=== PATIENT | male | born 1965 | race Caucasian/White ===

== ENCOUNTER → 2018-09-25 12:49 | Outpatient (CLI) | payer MEDICAID, SELFPAY ==
[2018-09-25 12:47] VITALS: BMI 31.7
--- NOTE | 2018-09-25 13:06 | RAD_ITS ---
STUDY: X-RAY - LEFT KNEE REASON FOR EXAM: Male, 53 years old. Pain. TECHNIQUE: For view(s) of the knee. COMPARISON: None. FINDINGS: Normal visualized distal femur. Normal visualized proximal tibia and fibula. Normal proximal tibiofibular articulation. There is no demonstrated fracture. There is severe degenerative arthrosis of the medial femorotibial compartment with severe joint space narrowing. There is mild degenerative arthrosis of the lateral femorotibial compartment. There is moderate degenerative arthrosis of the patellofemoral articulation. There is a soft tissue prominence in the suprapatellar region suggesting a small volume joint effusion. The soft tissue structures are unremarkable. RAD/Knee 4 or More Views IMPRESSION: 1. Degenerative arthrosis. 2. Probably small joint effusion. Electronically Signed: Jorden Sun MD at 13:37 EST Tel , Service support ,
--- OUTSIDE RECORDS SUMMARY | 2018-11-30 02:46 | XMS RPT_ITS ---
:1965 Author Organization [facility] Care Team Providers Name Role Phone Jose Antonio Barksdale Attending Unavailable Star Atkins Referring Unavailable Jose Antonio Barksdale Attending Unavailable Jose Antonio Barksdale Referring Unavailable PROBLEMS PROBLEMS DATE TYPE CONDITION / CODE ATTENDING STATUS SOURCE 09/25/2018 Unknown M25.562 - Pain Jose Antonio Barksdale Active [place] in left knee / Community M25.562(ICD-10) Hospital Repository 09/25/2018 Unknown S83.282A - Other Jose Antonio Barksdale Active [place] tear of lateral Community meniscus, Hospital current injury, Repository left knee, initial encounter / S83.282A(ICD-10) PROCEDURES PROCEDURES No Procedure Records FoundRESULTS RESULTS ORTHOPEDIC VISIT Observed: 09/25/2018 Status: F Source: DIANE REPORT 3:45 PM [facility] REPOSITORY [facility] [address] [place] [id number] OFFICE VISIT Date of Service: 09/25/18 MR#: [id number] Acct: [id number] Name: JOEL VALENTINE Rep #: [id number] : 1965 Provider: NAPOLEON Barksdale Age/Sex: 53/M Location: [facility] [place] Status: Signed Intake Vital Signs09/25/18 Height 5 ft 9 in 09/25/18 Weight: 215 lb 09/25/18 Body Mass Index (BMI) 31.7 Intake Visit Reasons: BILAT KNEES Is patient in pain?: Yes Allergies No Known Allergies Allergy (Unverified 09/25/18 12:48) Medications aripiprazole 10 mg tablet 10 mg PO DAILY 09/25/18 [History Confirmed 09/25/18] buspirone 5 mg tablet 5 mg PO BID 09/25/18 [History Confirmed 09/25/18] ibuprofen 200 mg tablet 200 mg PO TID-QID PRN 09/25/18 [History Confirmed 09/25/18] quetiapine 50 mg tablet 50 mg PO BID 09/25/18 [History Confirmed 09/25/18] HPI BILAT KNEES: Details: JOLE VALENTINE is a 53 year old M new patient here today for left knee pain. He states that he has had left knee pain for many years. He notes that he had a work injury in 1994 and had 2 arthroscopic surgeries. He notes that he then caught his foot on concrete around . He complains of pain over his lateral knee. Patient has increased pain with ambulating stairs. He has popping and clicking occasional. Patient has swelling which he has been icing his knee. Patient complains of knee stiffness. Patient has knee instability due to decreased strength. He denies any xrays, injections or physical therapy. Patient has an OTC knee brace. He is taking motrin or aleve for pain. ROS Const Reports system reviewed and no additional complaints, except as docu Eyes Reports system reviewed and no additional complaints, except as docu ENT Reports system reviewed and no additional complaints, except as docu Card Reports system reviewed and no additional complaints, except as docu Resp Reports system reviewed and no additional complaints, except as docu GI Reports system reviewed and no additional complaints, except as docu Reports system reviewed and no additional complaints, except as docu Musc Reports joint pain, Reports joint swelling Skin/Breast Reports system reviewed and no additional complaints, except as docu Neuro Yes system reviewed and no additional complaints, except as docu Psych Reports system reviewed and no additional complaints, except as docu Endo Reports system reviewed and no additional complaints, except as docu Ortho Exam Left Knee Swelling: No Homans Sign: No Knee ROM: Yes ROM-Extension -20 to 0, Yes ROM-Flexion 0-140 Examination: Yes Lat jt line tenderness, Yes Pain with flexion, Yes David's Test, Yes Crepitus, No TTP inf pole patella, Yes med jt line tenderness (Minimal) Quad Atrophy: No Stability: NML: Anterior Drawer, NML: Valgus 30, NML: Varus 30 Popliteal Adenopathy: No KNEE: Patient has no evident acute abnormalities on inspection. He has no localized or generalized swelling. There is no ecchymosis, bruising, erythema or other skin changes. He does have some bony widening of the knees bilateral. He does have full range of motion at the same time some pain with flexion. ACL, PCL and collateral ligaments appear intact without laxity or pain on maneuvers. He does have tenderness in the lateral joint line. He also does have some tenderness on the lateral femoral condyle and actually proximal to the lateral condyle possibly from IT band tightness. The adjacent IT band deafly is tight with some tenderness on palpation. Office Procedures Kenalog 40 mg/mL suspension for injection (triamcinolone acetonide) 80 mg Intra-Articular ONCE Injections Yes Knee Left Office Meds Kenalog Performing Provider: NAPOLEON Ortiz Administered by: NAPOLEON Ortiz on 09/25/18 13:55 Dose Route Admin Location Lot Number Expiration DateNDC Physical Therapy Manager 80 mg Intra-Articularleft knee [id number] 11/07/19 8096-2762-38 [employer] Assessment AND Plan Problems 1. Primary osteoarthritis of left knee M17.12 2. Derangement of meniscus of left knee M23.307 Plan Obtained Xrays of patient's left knee. Personally reviewed Xrays. There is no obvious fracture, dislocation, or lucency noted. He does have evident medial compartment as well as patellofemoral narrowing as well as some scattered osteophytic growths noted. See chart for further details. This time patient does have evidence on radiographs of moderate to severe arthritis of the medial compartment. His pains however have been occurring on the lateral joint line ever since he had a small injury. He does have some evidence of meniscus damage at the same time he does have some evidence of IT involvement. At this time we discussed options which include doing nothing, conservative care with ice and anti-inflammatories, injection to the knee, further imaging with MRI. At this time patient states that he really is having difficulty sleeping and having pretty continued pains in the knee and would like to have something for relief. At this point we did discuss that he would like to proceed with an injection into the left knee. We did also discuss further imaging with an MRI of the left knee to rule out lateral meniscus tear. I did discuss that yes there is medial compartment arthritis which could cause pain at the same time his pains again are lateral and started after he had that small event where he kind of twisted the knee. I explained the injection process and answered all patient's questions and consent was signed. Injection was given under normal sterile fashion using a lateral approach with the knee in full extension. Patient tolerated procedure without any problems. He is to continue to monitor notify of any erythema, increased pain, increased swelling. I would like him to ice and take anti-inflammatory for the next 2 days. Otherwise we will see him back after he has his MRI to discuss MRI findings. I do think that he needs to probably follow up with and that he can discuss all surgical options in case arthroscopic surgery is not his best choice. All questions were answered at this time. Patient also was given some home exercises that I like him to do to work on quadricep strength and hamstring strength to help stabilize and strength of the knee. Patient states he is Yasir been doing some at home but would continue to do some of these as well as some other exercises. This note was generated with [employer] dictation software. It may contain incorrect words, spelling, and punctuation that were not noted in checking the note before signing. Orders Orders: Medications Discontinued: Kenalog (triamcinolone acetonide) Disc80 mg (2 mL) Intra- Articular ONCE 2 mL 0RS83.282A ontinued Reason: Office Medication has bF NS een Documented as given Coding Level of Care Code Off vis,new,level 3 Diagnoses Primary osteoarthritis of left knee M17.12 Osteoarthritis type: primary Derangement of meniscus of left knee M23.307 Additional Codes health promotion officer.knee ([id number]) 09/25/18 1535 <Electronically signed by Jose Antonio BENDER> Date Jose Antonio BENDER Cosigner Signature: Date (if applicable) CC: KNEE 4 OR MORE Observed: 09/25/2018 Status: F Source: DIANE VIEWS 12:55 PM [facility] Imaging Services [address] [place] [address] Knee 4 or More Views MR#: [id number] Acct: [id number] Name: JOEL VALENTINE Rep #: [id number] : 1965 M 53 From: Jorden Sun MD PCP: Star Atkins MD Status: REG CLI Study: Knee 4 or More Views Date of Exam: 09/25/18 Exam# [id number] Ordering Dr: Jose Antonio Barksdale STUDY: X-RAY - LEFT KNEE REASON FOR EXAM: Male, 53 years old. Pain. TECHNIQUE: For view(s) of the knee. COMPARISON: None. FINDINGS: Normal visualized distal femur. Normal visualized proximal tibia and fibula. Normal proximal tibiofibular articulation. There is no demonstrated fracture. There is severe degenerative arthrosis of the medial femorotibial compartment with severe joint space narrowing. There is mild degenerative arthrosis of the lateral femorotibial compartment. There is moderate degenerative arthrosis of the patellofemoral articulation. There is a soft tissue prominence in the suprapatellar region suggesting a small volume joint effusion. The soft tissue structures are unremarkable. RAD/Knee 4 or More Views IMPRESSION: 1. Degenerative arthrosis. 2. Probably small joint effusion. Electronically Signed: Jorden Sun MD at 13:37 EST Tel , Service support , CC: NAPOLEON Barksdale; Star Atkins MD Jacquard Card Lacer: Signed ALLERGIES ALLERGIES DATE TYPE / CODE NAME / CODE REACTION SEVERITY SOURCE 09/25/2018 Drug No Known Unknown [facility] Allergy/4160 Allergies/F00 Hospital 15281(SNOMED [id number](RXNOR Repository CT) M) ENCOUNTERS ENCOUNTERS ADMIT/DISCHARGE ACCOUNT ADMITTING ENCOUNTER LOCATION SOURCE NUMBER CLASS 09/25/2018 [id number] Ambulatory Diane Diane 2 [facility] ing:[facility] Repository 09/25/2018/ [id number] Ambulatory BMSBuilding:B [place] [address] Repository PAYERS PAYERS ENCOUNTER GUARANTOR PAYER SUBSCRIBER SOURCE 09/25/2018 JOEL Sung Primary JOEL VALENTINE[address] Insurance:CARESOURCEP LINDALEDOB: [facility] Number: [id number] [id number] Repository [address]Bfy: (330) Date:2018-09-25P O [phone] () [address]ATTN: [place] [address]AD: 09/25/2018 Secondary NOT GIVENUNK [place] Insurance:SELF PAY [facility] Number: Effective Repository Date:2018-09-25 09/25/2018 JOEL Sung Primary JOEL VALENTINE[address] Insurance:CARESOURCEP LINDALEDOB: [facility] Number: [id number] [id number] Repository [address]Tyj: ([phone]) Date:2018-09-14P O [phone] () [address]ATTN: [place] [address]ET: 09/25/2018 Secondary NOT GIVENUNK [place] Insurance:SELF PAY [facility] Number: Effective Repository Date:2018-09-24
== END ==
PROVIDERS: PCP Family Medicine; Referring Provider Physician Assistant; Visit Provider Physician Assistant
DX: M25.562 Pain in left knee (principal)
CPT/HCPCS: 73564

== ENCOUNTER → 2018-10-09 10:09 | Outpatient (CLI) | payer MEDICAID, SELFPAY ==
[2018-09-25 12:47] VITALS: BMI 31.7
--- NOTE | 2018-10-09 10:11 | MRI_ITS ---
STUDY: MRI LEFT KNEE REASON FOR EXAM: Left knee pain, possible twisting injury 4 months ago. TECHNIQUE: Standardized fat and water weighted pulse sequences were obtained in all 3 orthogonal planes. COMPARISON: Radiographs 09/25/2018. FINDINGS: There is tear/degeneration of the posterior horn and body of the medial meniscus (proton-density sagittal images 7-17; proton density coronal images 13-21). There is arthrosis of the medial femorotibial compartment with marginal osteophytes, chondral loss (T2 sagittal image 8) and mild subchondral cystic change. Normal medial collateral ligamentous complex (MCL). Normal distal semimembranosus, gracilis and semitendinosus tendons. There is a horizontal tear of the inferior articular surface of the posterior horn/body of the lateral meniscus (proton-density sagittal images 35-38; proton density coronal images 11-16). Normal hyaline cartilage of the lateral femorotibial compartment. There are marginal osteophytes of the lateral femorotibial compartment. Normal lateral femoral condyle and tibial plateau. Normal proximal tibiofibular articulation. Normal lateral collateral (fibular) ligament. Normal popliteus tendon. Normal biceps femoris tendon. There is intrasubstance mucoid degeneration of the anterior cruciate ligament (T2 sagittal image 14). Normal posterior cruciate ligament (PCL). Normal congruent patellofemoral articulation. There is arthrosis of the patellofemoral compartment with small marginal osteophytes and partial-thickness chondral loss (T2 sagittal image 14). Normal medial and lateral patellar retinaculum. Normal visualized quadriceps tendon. Normal patellar tendon. Normal Hoffa's fat pad. There is a small joint effusion. There is a thin medial patellar plica. There is a ganglion cyst of the distal popliteus tendon sheath (T2 sagittal images 17, 18) measuring 2.5 cm in length. There is a small cyst in the proximal tibia at the insertion site of the posterior cruciate ligament. MRI/Lower Ext Joint Only (Routine) IMPRESSION: Lateral meniscal tear. Tear/degeneration of the medial meniscus. Arthrosis of the medial femorotibial and patellofemoral compartments. Small joint effusion. Ganglion cyst of the distal popliteus tendon sheath. Electronically Signed: Edu Roth MD at 14:25 EST Tel , Service support ,
== END ==
PROVIDERS: Family Provider Family Medicine; PCP Family Medicine; Referring Provider Physician Assistant; Visit Provider Physician Assistant
DX: S83.282A Other tear of lateral meniscus, current injury, left knee, initial encounter (principal); X58.XXXA Exposure to other specified factors, initial encounter; Y93.9 Activity, unspecified; Y92.9 Unspecified place or not applicable; Y99.9 Unspecified external cause status
CPT/HCPCS: 73721

== ENCOUNTER 2018-11-04 08:13 | Day surgery (SDC) | payer MEDICAID, SELFPAY ==
[2018-10-26 13:01] VITALS: BMI 31.7
[2018-11-04 08:36] VITALS: BP 128/82; PULSE 93; RESP 16; TEMP 36.7; O2SAT 96; BMI 31.8
[2018-11-04] MEDS: Cefazolin 2 GM in 0.9% Normal Saline 100 ML IV (11:04)
[2018-11-04] MEDS: MethylPREDNISolone Acetate 80 MG/ML Vial (11:45)
[2018-11-04] MEDS: Bupiv/Epi 0.5% Mpf 30 ML Vial (11:45)
[2018-11-04] MEDS: Bupivacaine 0.5% PF 10 ML VIAL (11:45)
[2018-11-04] MEDS: Morphine 4 MG/ML Syringe (11:45)
--- NOTE | 2018-11-04 12:02 | DCINST_ITS ---
Call your doctor if you observe: Shortness of breath, Chest pain Additional Instructions: Ice and elevate next 72 hours .keep dressing on clean and dry for 48 hours then may remove begin showering daily but do not submerge in tub or pool. After shower may apply Band-Aids . Encourage knee range of motion weightbearing as tolerated, use crutches until confident in knee then may discontinue. No strenuous activity. When not ambulating keep iced and elevated next 72 hours. Allergies/Adverse Reactions: Allergies No Known Allergies Allergy (Verified 11/04/18 08:30) Medications to take at Discharge aripiprazole 10 mg tablet 2 mg PO DAILY 09/25/18 buspirone 5 mg tablet 10 mg PO BID 09/25/18 ibuprofen 200 mg tablet 200 mg PO TID-QID PRN 09/25/18 quetiapine 50 mg tablet 25 mg PO QHS 09/25/18 Venlafaxine HCl [Effexor] 75 mg PO BID 11/02/18 Hydrocodone Bitart/Apap 5-325 [Dryden 5MG-325MG] 1 - 2 tablet PO Q4H PRN PRN 5 Days #50 tablet 11/04/18 The following prescriptions were given: Hydrocodone Bitart/Apap 5-325 [Dryden 5MG-325MG] 1 - 2 tablet PO Q4H PRN PRN 5 Days #50 tablet PRN Reason: Pain Primary Care Physician: Star Atkins MD [Primary Care Provider] - Test Results: Test results from this visit will be discussed in further detail at your follow- up appointment, if applicable. Please Follow Up With: Star Gaines DO - 2wcristiane
[2018-11-04 12:04] VITALS: BP 126/88; BP 128/82; PULSE 68; RESP 16; TEMP 37.1; O2SAT 92
--- NOTE | 2018-11-04 12:04 | PCM.OPRPT ---
Report of Operation Date of Procedure: 11/04/18 Description of Surgical Findings:: Preop diagnosis: Left knee DJD lateral meniscus tear Postoperative diagnosis: Large anterior horn lateral meniscus radial tear degenerative tearing posterior horn and body lateral meniscus grade 4 [id number]-jl-mdpr kissing lesions medial compartment degenerative tearing body medial meniscus and patellofemoral compartment grade 3 lateral compartment synovitis Procedure: Left knee arthroscopic partial medial and lateral meniscal tear plasty tricompartment synovectomy Anesthesia: General Estimated blood loss: 5 mL Tourniquet time: 25 minutes 300 mmHg Complications: none Indication for procedure: This is a 53-year-old male patient who has had 2 prior arthroscopic surgeries of this knee who has mechanical knee pain and did have MRI evidence of lateral meniscus tear he has failed conservative treatment and wished to undergo an elective arthroscopic procedure to attempt to alleviate some of his of his mechanical symptoms he understands that there is not much that can be done for his arthritis that there is a strong possibility he will need a total knee replacement down the road. Risk benefits and alternatives of the procedure were reviewed including risk of bleeding infection nerve artery tissue damage need for further surgery continued pain and expected postoperative course. Procedure: The patient was met in the preoperative holding area. The operative extremity was identified by both patient and physician and family and marked. Patient was brought back to the operating room on a wheeled cart and transferred to the operating table in the supine position. Anesthesia was started. A well-padded tourniquet was placed on the operative extremity. A lower extremity leg kwan was secured to the operative extremity. The contralateral extremity was well-padded and the end of the bed was flexed to 90 degrees. The patient was prepped and draped in the usual sterile fashion. A timeout was called to ensure the proper patient, procedure, and extremity were being contemplated. 0.5% Marcaine with epinephrine was injected into the planned incisional areas under the skin only. An Esmarch was used to exsanguinate the extremity and the tourniquet was inflated. An 11 blade scalpel was used to make a stab incision in the anterior lateral portal. The arthroscope was inserted into the intercondylar notch and inflow and outflow tubes were attached. Arthroscopic visualization began. The medial compartment was entered. An 18-gauge spinal needle was used to establish the placement for anterior medial portal. An 11 blade scalpel was used to make a stab incision. Blunt probe was inserted followed by a meniscal probe. The medial compartment was aigm-ah-szgp there was degenerative meniscal tearing which was debrided with the shaver the ACL was found to be partially torn and was debrided. The lateral compartment was entered grade III chondromalacia throughout large anterior horn radial tear and degenerative check tearing in the body and horn of the meniscus partial lateral meniscectomy and chondroplasty was performed The arthroscope was switched to the medial portal to complete the procedure. The medial and lateral gutters were inspected and were free of loose bodies. The patellofemoral joint was inspected grade 4 cartilage wear throughout the trochlea and patella. There was good patellar tracking. The knee was thoroughly irrigated and drained. An intra-articular injection with 5 cc 0.5% Marcaine plain 4 mg of morphine and 40 mg of Depo-Medrol was injected intra-articularly. The arthroscope was removed the portals were closed with 3-0 nylon arthroscopic stitches. Followed by Xeroform 4 x 4's ABDs web roll and an Kali wrap. The tourniquet was let down and the drapes were removed. All counts were correct. The patient was brought back to the PACU in stable condition.
--- NOTE | 2018-11-04 12:10 | OP.PCM_ITS ---
Report of Operation Date of Procedure: 11/04/18 Description of Surgical Findings:: Preop diagnosis: Left knee DJD lateral meniscus tear Postoperative diagnosis: Large anterior horn lateral meniscus radial tear degenerative tearing posterior horn and body lateral meniscus grade 4 daxc-lc-kann kissing lesions medial compartment degenerative tearing body medial meniscus and patellofemoral compartment grade 3 lateral compartment synovitis Procedure: Left knee arthroscopic partial medial and lateral meniscal tear plas ty tricompartment synovectomy Anesthesia: General Estimated blood loss: 5 mL Tourniquet time: 25 minutes 300 mmHg Complications: none Indication for procedure: This is a 53-year-old male patient who has had 2 prior arthroscopic surgeries of this knee who has mechanical knee pain and did have MRI evidence of lateral meniscus tear he has failed conservative treatment and wished to undergo an elective arthroscopic procedure to attempt to alleviate some of his of his mechanical symptoms he understands that there is not much that can be done for his arthritis that there is a strong possibility he will need a total knee replacement down the road. Risk benefits and alternatives of the procedure were reviewed including risk of bleeding infection nerve artery tissue damage need for further surgery continued pain and expected postoperative course. Procedure: The patient was met in the preoperative holding area. The operative extremity was identified by both patient and physician and family and marked. Patient was brought back to the operating room on a wheeled cart and transferred to the operating table in the supine position. Anesthesia was started. A well- padded tourniquet was placed on the operative extremity. A lower extremity leg kwan was secured to the operative extremity. The contralateral extremity was well-padded and the end of the bed was flexed to 90 degrees. The patient was prepped and draped in the usual sterile fashion. A timeout was called to ensure the proper patient, procedure, and extremity were being contemplated. 0.5% Marcaine with epinephrine was injected into the planned incisional areas under the skin only. An Esmarch was used to exsanguinate the extremity and the tourniquet was inflated. An 11 blade scalpel was used to make a stab incision in the anterior lateral portal. The arthroscope was inserted into the intercondylar notch and inflow and outflow tubes were attached. Arthroscopic visualization began. The medial compartment was entered. An 18-gauge spinal needle was used to establish the placement for anterior medial portal. An 11 blade scalpel was used to make a stab incision. Blunt probe was inserted followed by a meniscal probe. The medial compartment was arjv-cy-gywi there was degenerative meniscal tearing which was debrided with the shaver the ACL was found to be partially torn and was debrided. The lateral compartment was entered grade III chondromalacia throughout large anterior horn radial tear and degenerative check tearing in the body and horn of the meniscus partial lateral meniscectomy and chondroplasty was performed The arthroscope was switched to the medial portal to complete the procedure. The medial and lateral gutters were inspected and were free of loose bodies. The patellofemoral joint was inspected grade 4 cartilage wear throughout the trochlea and patella. There was good patellar tracking. The knee was thoroughly irrigated and drained. An intra-articular injection with 5 cc 0.5% Marcaine plain 4 mg of morphine and 40 mg of Depo-Medrol was injected intra-articularly. The arthroscope was removed the portals were closed with 3-0 nylon arthroscopic stitches. Followed by Xer oform 4 x 4's ABDs web roll and an Kali wrap. The tourniquet was let down and the drapes were removed. All counts were correct. The patient was brought back to the PACU in stable condition.
[2018-11-04 12:15] VITALS: BP 112/63; BP 128/82; PULSE 72; RESP 16; O2SAT 94
[2018-11-04 12:30] VITALS: BP 117/60; BP 128/82; PULSE 76; RESP 16; O2SAT 94
[2018-11-04 12:38] VITALS: BP 128/82; BP 132/73; PULSE 79; RESP 16; TEMP 36.6; O2SAT 94
[2018-11-04 13:23] VITALS: BP 128/82; BP 136/87; PULSE 74; RESP 16; TEMP 36.1; O2SAT 96
== END 2018-11-04 13:34 | disposition home or self-care (01) ==
LOC: SDC 08:13 → AC 08:14
PROVIDERS: Family Provider Family Medicine; PCP Family Medicine; Referring Provider Orthopaedic Surgery; Visit Provider Orthopaedic Surgery
PROC: (CPT 29870; principal; 2018-11-04 09:50)
DX: S83.282A Other tear of lateral meniscus, current injury, left knee, initial encounter (principal); S83.242A Other tear of medial meniscus, current injury, left knee, initial encounter; M17.12 Unilateral primary osteoarthritis, left knee; X58.XXXA Exposure to other specified factors, initial encounter; Y93.9 Activity, unspecified; Y92.9 Unspecified place or not applicable; Y99.9 Unspecified external cause status; F31.9 Bipolar disorder, unspecified; F41.9 Anxiety disorder, unspecified; Z87.891 Personal history of nicotine dependence; Z79.899 Other long term (current) drug therapy
CPT/HCPCS: 01400; 20610; 29880; J7120; J2405